=== PATIENT | female | born 1965 | race Caucasian/White ===

== ENCOUNTER 2022-05-20 12:14 | Emergency (ER) | payer MEDICARE, OTHER ==
[~2022-05-20] VITALS: Ht 149.9 cm; Wt 63.6 kg
[2022-05-20] MEDS ORDERED: KETOROLAC TROMETHAMINE 30 MG/ML VIAL IM ONE (13:15)
[2022-05-20] MEDS ORDERED: GABAPENTIN 300 MG CAPSULE PO ONE (13:15)
[2022-05-20] MEDS ORDERED: NAPR-1025 PO (14:21)
[2022-05-20] MEDS ORDERED: GABA-1181 PO (14:21)
[2022-05-20 14:50] VITALS: BP 132/85
== END 2022-05-20 15:19 | disposition home or self-care (01) ==
LOC: EMS 12:18
DX: M54.42 Lumbago with sciatica, left side (principal); F20.9 Schizophrenia, unspecified
CPT/HCPCS: 99283; 96372; J1885